=== PATIENT | female | born 1965 | race Caucasian/White ===

== ENCOUNTER 2024-11-26 09:24 | Outpatient (CLI) | payer MEDICARE, BC ==
[~2024-11-26 09:24] MED LIST: BUPR75TA8 PO; DULO30CA52 PO; DULO60CA65 PO; HYDR200T73 PO; LEVO175T7 PO; LOP25T PO; MESA1.2T PO; METH-350 PO; METH2.5T55 PO; OXYM20TA14 PO; PRED5TAB PO; TAPE50TA9 PO; TRAZ-251 PO
--- NOTE | 2024-11-27 00:11 | CONSULTATION ---
DATE OF CONSULTATION: 11/26/2024 DICTATING PHYSICIAN: Marycarmen Sorto M.S., [facility])-[employer] MODIFIED BARIUM SWALLOW STUDY REPORT REFERRING PHYSICIAN: Naresh Light MD HISTORY OF PRESENT ILLNESS: The patient is a 59-year-old female who consents to this evaluation. In history obtained from the patient and medical records, the patient reports symptoms of dysphagia including having a sore throat for the past couple of months, in which she feels like food is getting stuck. She reports that she has been feeling more full for the last 1-2 months to the point where she has been cutting back on what she is eating and how much she is drinking as liquids also make her feel full. She reports that she has Sjogren's disease and that she has had ulcers in the mouth before. She reports that it feels as if she has an ulcer at the level of either her larynx or her sternum. The patient has had prior radiation and throat surgery. She cannot remember how long ago, but notes it was at least 5 years ago. She has also had previous esophageal dilations completed several times, but she has not had that in a while. Again, she cannot recall the exact time of the last dilation. She did have an endoscopy about a year ago. She reports that shortly after the endoscopy, she had gone to the hospital due to having a blockage in her intestine. CURRENT DIET: In terms of caffeine, the patient has recently cut back and has very little to no coffee or hot chocolate due to irritation with her stomach. She also avoids carbonated drinks or if there is any slight carbonation, she pours it so it will go flat. She does not utilize tobacco products or drink alcohol. She rarely consumes chocolate as she has cut back on her hot chocolates or mostly has this in the winter. In terms of dairy products, the patient has been having a little bit of ice cream once a day but has recently cut back on this due to irritation with her stomach. Her typical breakfast consists of a veggie blueberry muffin or a scrambled egg. She then does not eat again until about 6:00 or 6:30 and then she has soup. She might have some chips or ice cream following her dinner. She usually goes to bed at 9:00, but she has not been feeling well lately, so she has been going to bed between 8:00 and 8:30. MEDICATIONS: Vitamin D2 50,000 units 1 tablet every Friday; Estriol cream 0.01% used every other night; gabapentin 300 mg 1 tablet 3 times daily orally; hydrochloroquine (Plaquenil) 200 mg 2 tablets Friday through Friday, 1 tablet Friday and Friday; prednisone 13 mg once daily orally; Levoxyl 175 mg once daily orally; Mesalamine DR 800 mg 3 tablets once daily orally; tramadol HCL 50 mg 1 tablet twice daily orally; trazodone 150 mg once daily orally; famotidine 40 mg 1 tablet once daily orally; nystatin mouthwash 100,000 units/mL, 5 mL four times a day prn; odensatran prn; sumatriptan p.r.n. 6 mg/0.5 mL, inject one dose, can repeat after 1 hour, max 2 doses in 24 hours p.r.n.; fluconazale prn; myralax prn; probiotic; eye lubricant; Refresh eye drops; Tylenol; Dulcolax p.r.n.; MiraLax; Centrum; vitamin; Citracal slow release 1200 plus D. PARAMETERS: The patient is seated in a lateral 90-degree view and administered the usual protocol of thin and nectar thick liquids, puree, and solid consistencies, as well as self-regulated boluses of thin liquids from a cup. RESULTS: In the oral stage of the swallow, it appears oral transit is characterized by reducing lingual palatal stripping secondary to reduced tongue-based retraction, which is mild to moderately reduced. There is a mild to moderate oral residue following the initial swallow of boluses. In the pharyngeal stage of the swallow, swallow initiation was within functional limits. Elevation of the hyothyroid complex was accomplished with full range of motion. Anterior movement of the posterior pharyngeal wall is preserved. There is no pharyngeal residue and PES opening is within functional limits. At no time is the patient noted to penetrate or aspirate on any of the bolus sizes or consistencies. It is noted in the lateral plane that it does look like there is a what appears to be an air bubble for when she is swallowing her liquid consistencies, but this does not appear until it passes the vallecula. Also, noted in the lateral view is that when the patient has her thin and thick liquid consistency, there starts to be a sticking at the level of the sternum, and then for the pureed and cookie consistency, that sticking would begin right below the PES opening. When she had the self-regulated bolus of thin liquid from a cup, it helped to wash that sticking down again to the level of the sternum. ANTERIOR, POSTERIOR VIEW: In the AP plane, the bolus split symmetrically between the piriform sinuses. It was noted that on the left side at the level of the sternum, there appeared to be some sort of pocket or narrowing of the esophagus. The bolus would start to reside at that level and then most of the bolus would then propel down through the esophagus into the stomach and with the scan up, there would still be some of that residue sticking right at that level of the sternum. IMPRESSION: The patient demonstrates what appears to be a moderate pharyngoesophageal phase swallowing disorder characterized by reduced tongue-based retraction and sticking of the bolus at the level of the sternum. Again, it appears to be a pocket as this area is wider and then results into a narrowed esophagus below. DIAGNOSES: R13.14, dysphagia, pharyngoesophageal phase; K21.9, gastroesophageal reflux disease. PATIENT EDUCATION: Immediately following modified barium swallow study, the patient was able to see the results. The patient was recommended on a strategy of alternating her liquids and solids to help propel the boluses through the esophagus. She was also recommended to follow up with her GI doctor regarding what was observed in the esophageal view. RECOMMENDATIONS: It is recommended that the patient utilize strategy of alternating liquids and solids to help propel the boluses through the esophagus. It is recommended that the patient follow up with her GI doctor for a GI consult regarding the sticking of the boluses and the AP view. LONG-TERM GOALS: The patient will maintain adequate hydration/nutrition with optimum safety and efficiency as swallow function on p.o. intake without overt signs and symptoms of aspiration for the highest possible diet level. G-CODE: [id number] FUNCTIONAL ORAL INTAKE: FOIS was administered to establish and document a change in the functional eating activities of this patient over time. This was a 7-point scale with 1 indicating no oral intake and totally tube dependent and 7 indicating total oral intake with no restrictions. This patient received 6, which indicates she has a total oral diet with multiple consistencies without special preparation but with specific food limitations and precautions. Thank you very much for asking me to participate in the care of this kind patient. Should you have any questions regarding this evaluation or recommendations, please do not hesitate to contact me at [phone]. During this examination, 2 minutes and 48 seconds of fluoroscopy time and 13.56 CAK mGy were utilized. Marycarmen Sorto M.S., [employer] TID: [id number] RECEIPT: [id number] OLIVERIO/SIMON/DEVIN SHIELDS
== END 2024-11-26 23:59 | disposition home or self-care (01) ==
LOC: RAD 09:24
PROVIDERS: ATTEND Internal Medicine
DX: R13.14 Dysphagia, pharyngoesophageal phase (principal); K21.9 Gastro-esophageal reflux disease without esophagitis
CPT/HCPCS: 74230